=== PATIENT | male | born 1990 | race Caucasian/White ===

== ENCOUNTER 2019-07-01 12:47 | Emergency (ER) | payer BC, MEDICAID ==
[2019-07-01 13:34] VITALS: BP 143/85
--- NOTE | 2019-07-15 20:18 | UC ---
Skin Complaint HPI - HPI Summary HPI Summary: Yesterday pt had bilateral skin irritation that itched. When pt itched the areas , the skin came off and has caused open sores. R ankle is swollen from irritation as well. - History of Current Complaint Chief Complaint: UCSkin Time Seen by Provider: 07/01/19 13:28 Stated Complaint: BILATERAL ANKLE SKIN CONCERN Hx Obtained From: Patient Onset/Duration: Gradual Onset, Lasting Days Skin Exposure Onset/Duration: Days Ago Timing: Constant Onset Severity: Mild Current Severity: Severe Pain Intensity: 7 Pain Scale Used: 0-10 Numeric Location: Generalized - over bilateral legs Character: Swelling, Redness, Painful Aggravating Factor(s): Nothing, Touch, Other - pressure Alleviating Factor(s): Nothing Associated Signs & Symptoms: Positive: Shivering, Chills, Tenderness, Joint Swelling - Allergy/Home Medications Allergies/Adverse Reactions: Allergies Allergy/AdvReac Type Severity Reaction Status Date / Time No Known Allergies Allergy Verified 07/01/19 13:35 PMH/Surg Hx/FS Hx/Imm Hx Previously Healthy: Yes - Surgical History Surgical History: None - Family History Known Family History: Positive: Hypertension - Social History Alcohol Use: Rare Substance Use Type: Marijuana, Other Substance Use Comment - Amount & Last Used: 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 Smoking Status (MU): Heavy Every Day Tobacco Smoker Type: Cigarettes Amount Used/How Often: 1 PPD Review of Systems All Other Systems Reviewed And Are Negative: Yes Constitutional: Positive: Chills, Fatigue Skin: Positive: Rash, Other - redness Musculoskeletal: Positive: Arthralgia, Decreased ROM, Edema, Myalgia Is Patient Immunocompromised?: No Physical Exam Triage Information Reviewed: Yes Appearance: Well-Nourished, Ill-Appearing, Pain Distress Vital Signs: Initial Vital Signs Temp 99.6 F 07/01/19 13:28 Pulse 88 07/01/19 13:28 Resp 20 07/01/19 13:28 BP 143/85 07/01/19 13:28 Pulse Ox 98 07/01/19 13:28 Vital Signs Reviewed: Yes Eye Exam: Normal ENT Exam: Normal Dental Exam: Normal Neck exam: Normal Respiratory Exam: Normal Respiratory: Positive: Chest non-tender, Lungs clear, Normal breath sounds Cardiovascular Exam: Normal Abdominal Exam: Normal Abdomen Description: Positive: Nontender, No Organomegaly, Soft Bowel Sounds: Positive: Present Musculoskeletal: Positive: Edema @ - surrounding right ankle, ROm is limited in dorsi flexion, hard to bear weight Neurological Exam: Normal Psychological Exam: Normal Skin: Positive: Rashes - many scabs and open areas on legs, right ankle erythema noted Course/Dx - Course Course Of Treatment: hx obtained, exam performed ,meds reviewed, patient has hx of drug use, is constantly scratching and picking at skin patient appears to have septic right ankle. sent to [place] [facility] for further eval - Differential Diagnoses - Skin Complaint Differential Diagnoses: Cellulitis, Contact Dermatitis, Drug Rash, Drug Intoxication, Other - septic joint - Diagnoses Provider Diagnosis: Septic arthritis of right ankle Discharge ED - Sign-Out/Discharge Documenting (check all that apply): Patient Departure All imaging exams completed and their final reports reviewed: No Studies - Discharge Plan Condition: Stable Disposition: HOME-RECOMMEND TO ED Referrals: No Primary Care Phys,NOPCP [Primary Care Provider] - Additional Instructions: 1. please report to [facility] for further work up of the ankle issue, they have been notified of your situation and are expecting you. - Billing Disposition and Condition Condition: STABLE Disposition: Home-Recommend to ED - Attestation Statements Provider Attestation: I was available for consult. This patient was seen by the [facility]. The patient was presented to , seen by and briefly examined by me. HPI: bilateral skin irritation that itched. When pt itched the areas, the skin came off and has caused open sores. R ankle is swollen from irritation as well. Physical exam: many scabs and open areas on legs, right ankle erythema noted. Right ankle: erythema, swelling noted, tender to palpate. Limited and painful range of motion. Assessment/ Plan: Cellulitis with concern for septic arthritis, plan to refer to ER for further imaging and definitive management. Patient in agreement . -Reva Gamble MD
== END 2019-07-01 13:56 | disposition home health service (06) ==
LOC: UCCORT 12:47
DX: M00.9 Pyogenic arthritis, unspecified (principal); R68.83 Chills (without fever); R53.83 Other fatigue; R21 Rash and other nonspecific skin eruption; R60.0 Localized edema; F17.210 Nicotine dependence, cigarettes, uncomplicated
CPT/HCPCS: 99202; G0463